=== PATIENT | female | born 1945 | race American Indian/Alaskan Native ===

== ENCOUNTER 2017-04-01 06:59 | Emergency (ER) | payer BC, MEDICARE ==
[~2017-04-01] VITALS: Ht 152.4 cm; Wt 55.3 kg
[~2017-04-01 06:59] MED LIST: FOLIC ACID1 MG PO; KEFLEX500 MG PO; LEUCOVORIN CALCI5 MG PO; MACROBID 100 M100 MG PO; METHOTREXATE2.5 MG PO; MS CONTIN15 MG PO; MULTIPLE VITAM1 EAC2 PO; NAPROXEN500 MG PO; NORCO 5-325 TA1 EACH PO; NORVASC2.5 MG PO; ORENCIA125 MG/1 M SQ; PROMETHAZINE12.5 M1 PO; PYRIDIUM200 MG PO; ULTRAM50 MG PO; VITAMIN C500 M4 PO; VITAMIN D2000 UNI1 PO; VITAMIN E200 UNI1 PO; ZOFRAN ODT4 MG PO
[2017-04-01] MEDS ORDERED: MUPIROCIN22 GM TOP (07:16)
[2017-04-01] MEDS ORDERED: AMLODIPINE BESYL5 MG PO (07:16)
[2017-04-01] MEDS ORDERED: METFORMIN HCL500 M1 PO (07:16)
[2017-04-01] MEDS ORDERED: ZITHROMAX250 MG PO (08:09)
== END 2017-04-01 08:22 | disposition home or self-care (01) ==
LOC: ED 06:59
DX: J18.9 Pneumonia, unspecified organism (principal); Z79.84 Long term (current) use of oral hypoglycemic drugs; Z79.899 Other long term (current) drug therapy
CPT/HCPCS: 71020; 99283

== ENCOUNTER 2024-10-09 11:19 | Observation (INO) | payer MEDICARE, OTHER ==
[~2024-10-09] VITALS: Ht 152.4 cm; Wt 51.7 kg
[~2024-10-09 11:19] MED LIST changes: +AMLODIPINE BESYL5 MG PO; +METFORMIN HCL500 M1 PO; +MUPIROCIN22 GM TOP; +ZITHROMAX250 MG PO
[2024-10-09 11:47] LABS: EOSINOPHILS 2.2 % (0.7-5.8); HEMATOCRIT 39.2 % (34.1-44.9); HEMOGLOBIN 13.1 g/dL (11.2-15.7); MCH 27.4 PG (25.6-32.2); MCHC 33.4 g/dL (32.2-35.5); NEUTROPHILS 60.5 % (34.0-71.1); PLATELET COUNT 253 K/uL (182-369); RBC 4.78 M/uL (3.93-5.22)
[2024-10-09 11:59] LABS: INR 0.99 (0.80-1.30); PROTIME 12.7 Sec (11.2-14.2)
[2024-10-09 12:01] LABS: PARTIAL THROMBOPLASTIN TIME 25.7 Sec (22.9-41.3)
[2024-10-09] MEDS ORDERED: GLIPIZIDE ER2.5 MG PO (12:09)
[2024-10-09 12:19] LABS: ALBUMIN 3.7 g/dL (3.4-5.0); ALBUMIN/GLOBULIN RATIO 0.9 (1.1-2.4); ANION GAP 14.5 (7-21); BILIRUBIN, TOTAL 0.4 mg/dL (0.2-1.0); BUN/CREATININE RATIO 15.23 (6.0-28.6); CALCIUM 8.9 mg/dL (8.5-10.1); CREATININE, SERUM 1.05 mg/dL (0.55-1.02); POTASSIUM 4.5 mmol/L (3.5-5.1); PROTEIN, TOTAL 7.8 g/dL (6.4-8.2)
[2024-10-09] MEDS ORDERED: ASPIRIN 325 MG TAB PO ONE (12:45)
[2024-10-09] MEDS ORDERED: CLOPIDOGREL BISULFATE 75 MG TAB PO ONE (14:00)
[2024-10-09] MEDS ORDERED: GLUCAGON,HUMAN RECOMBINANT 1 MG/ML VIAL SUB-Q PRN (15:30)
[2024-10-09] MEDS ORDERED: IBLOOD GLUCOSE TEST STRIP 1 EA TEST XX PRN (15:30)
[2024-10-09] MEDS ORDERED: LACTATED RINGER'S 1,000 ML IV SCH (15:30)
[2024-10-09] MEDS ORDERED: DEXTROSE 5% 1,000 ML IV PRN (15:30)
[2024-10-09] MEDS ORDERED: DEXTROSE 50% 50 ML SYR IV PRN ×2 (15:30)
[2024-10-09] MEDS ORDERED: ACETAMINOPHEN 325 MG TAB PO PRN (15:30)
[2024-10-09] MEDS ORDERED: ondansetron HCL 4 MG/2 ML VIAL IV PRN (15:30)
[2024-10-09 15:49] LABS: CHOLESTEROL/HDL RATIO 3.3; TSH, 3RD GENERATION 1.752 uIU/mL (0.358-3.740)
[2024-10-09 16:38] VITALS: BP 139/64
[2024-10-09] MEDS ORDERED: IBLOOD GLUCOSE TEST STRIP 1 EA TEST VI SCH (17:00)
[2024-10-09] MEDS ORDERED: INSULIN LISPRO 100 UNIT/ML ML SUB-Q SCH (17:00)
--- NOTE | 2024-10-09 17:24 | NUR ---
ADMISSION COMPLETE AT THIS TIME. PATIENT WITH TWO VISITORS IN THE ROOM THROUGHOUT PATIENT INTERACTION. FULL ASSESSMENT COMPLETE AND DOCUMENTED IN THE CHART. PATIENT IS ALERT AND ORIENTED TIMES FOUR. PATIENT IS A SBA AND VOIDED UPON ENTERING THE ROOM. PATIENT LAST BM WAS 10/09/24. IV SITE FLUSHED WITH 10 ML NORMAL SALINE. LR IS INFUSING AT 100 ML/HR. IV DRESSING IS CLEAN, DRY, AND INTACT. PATIENT IS ON ROOM AIR AND LUNG SOUNDS ARE CLEAR THROUGHOUT. CARDIAC WITH NORMAL S1 AND S2 ON AUSCULTATION. RADIAL AND PEDAL PULSES ARE STRONG BILATERALLY. NO EDEMA NOTED. SENSATION INTACT WITH NO COMPLAINTS OF NUMBNESS OR TINGLING. CAPILLARY REFILL IN THE UPPER AND LOWER EXTREMITIES IS LESS THAN 3 SECONDS. PATIENT IS ON A 60 GRAM CARB DIET. BOWEL TONES ARE ACTIVE IN ALL FOUR QUADRANTS. PATIENT IS ON TELEMETRY NUMBER 3 AND IS IN NORMAL SINUS RHYTHM. NIH WAS ONE. PATIENT WITH NO COMPLAINTS OF PAIN OR NAUSEA. PATIENT STATED NO FURTHER NEEDS AT THIS TIME. CALL LIGHT AND PERSONAL BELONGINGS ARE WITHIN REACH.
--- NOTE | 2024-10-09 18:33 | NUR ---
LEVY LANDRY IS IN THE ROOM AT THIS TIME. PATIENT STATED NO FURTHER NEEDS AT THIS TIME. CALL LIGHT AND PERSONAL BELONGINGS ARE WITHIN REACH.
[2024-10-09 18:34] VITALS: BP 136/57
--- NOTE | 2024-10-09 18:39 | NUR ---
PT RESTING IN BED. PT WAS ABLE TO WALK TO THE BATHROOM WITHOUT REPORTS OF DIZZINESS. PT ATE DINNER WELL AND HAD ICE WATER AND CRANBERRY JUICE TO DRINK. PT REPORTS NO PAIN, DIZZINESS OR TROUBLE WITH VISION. PT HAS FRESH ICE WATER AND NEEDS NOTHING ELSE AT THIS TIME.
[2024-10-09 18:43] VITALS: BP 136/57
--- NOTE | 2024-10-09 19:05 | NUR ---
REPORT RECEIVED FROM AIDEE SRINIVASAN. pt RESTING IN THE BED. BOARD UPDATED. pt DENIES ANY OTHER NEEDS AT THIS TIME. CALL LIGHT WITHIN REACH.
[2024-10-09 20:28] VITALS: BP 114/55
--- NOTE | 2024-10-09 20:29 | NUR ---
STAINED GLASS WINDOW DESIGNER OBTAINED VITALS AND I&O. PT STATES NO NEEDS AT THIS TIME. CALL LIGHT WITHIN REACH.
[2024-10-09 20:50] VITALS: BP 114/55
--- NOTE | 2024-10-09 20:50 | NUR ---
ASSESSMENT AND VITAL SIGNS DONE. pt UP TO THE BR, SBA FOR LINE AND TUBE MANAGEMENT. pt A&O X4. NO DEFICITS AT THIS TIME. IV ASSESSED, WNL. WATER REFRESHED. SNACK PROVIDED. pt DENIES ANY OTHER NEEDS AT THIS TIME. CALL LIGHT WITHIN REACH.
[2024-10-09] MEDS ORDERED: ATORVASTATIN 40 MG TAB PO SCH (21:00)
[2024-10-09] MEDS ORDERED: MELATONIN 3 MG TAB PO PRN (21:00)
--- NOTE | 2024-10-09 23:00 | NUR ---
pt RESTING IN THE BED WITH EYES CLOSED. RR EVEN AND UNLABORED. CALL LIGHT WITHIN REACH.
[2024-10-10 01:37] VITALS: BP 111/47
--- NOTE | 2024-10-10 01:38 | NUR ---
SUPERVISOR INDUSTRIAL GARMENT OBTAINED VITALS AND I&O. PT STATES NO NEEDS AT THIS TIME. CALL LIGHT WITHIN REACH.
--- NOTE | 2024-10-10 03:15 | NUR ---
pt RESTING IN THE BED WITH EYES CLOSED. RR EVEN AND UNLABORED. CALL LIGHT WITHIN REACH.
[2024-10-10 05:18] VITALS: BP 108/63
--- NOTE | 2024-10-10 05:19 | NUR ---
TOPPIECE CHOPPER OBTAINED VITALS. NO NEW I&O AT THIS TIME. PT STATES NO NEEDS AND CALL LIGHT WITHIN REACH.
[2024-10-10 05:31] LABS: BASOPHILS 1.1 % (0.1-1.2); HEMATOCRIT 35.6 % (34.1-44.9); HEMOGLOBIN 11.8 g/dL (11.2-15.7); LYMPHOCYTES 41.3 % (19.3-51.7); MCH 27.6 PG (25.6-32.2); MCHC 33.1 g/dL (32.2-35.5); MCV 83.4 fL (79.4-94.8); MONOCYTES 5.9 % (4.7-12.5); NEUTROPHILS 46.4 % (34.0-71.1); PLATELET COUNT 225 K/uL (182-369); RBC 4.27 M/uL (3.93-5.22)
[2024-10-10 05:42] LABS: ANION GAP 13.7 (7-21); BUN/CREATININE RATIO 13.79 (6.0-28.6); CALCIUM 8.3 mg/dL (8.5-10.1); CREATININE, SERUM 0.87 mg/dL (0.55-1.02); MAGNESIUM 2.1 mg/dL (1.8-2.4); POTASSIUM 4.7 mmol/L (3.5-5.1)
--- NOTE | 2024-10-10 06:10 | NUR ---
pt RESTED THROUGH OUT THE NIGHT. NO NEW DEFICITS NOTED. pt STATES THAT HAND AND TONGUE NUMBNESS HAS GONE AWAY. SBA TO BR FOR LINE AND TUBE MANAGEMENT. IVF INFUSING PER ORDER.
[2024-10-10 06:36] VITALS: BP 108/63
--- NOTE | 2024-10-10 07:01 | NUR ---
REPORT RECEIVED FROM FLEXOGRAPHIC PRESS OPERATOR RN PACHECO. PATIENT IS LYING IN BED WITH EYES OPEN AND RESPIRATIONS ARE EVEN AND UNLABORED. PATIENT IS ON THEIR PHONE. PATIENT STATED NO FURTHER NEEDS AT THIS TIME. CALL LIGHT AND PERSONAL BELONGINGS ARE WITHIN REACH.
--- NOTE | 2024-10-10 07:31 | NUR ---
PT UP TO BR INDEPENDTLY. PT VOIDS W/O DIFFICULTY. LINENS CHANGED. WARM BLANKET AND ICE WATER PROVIDED. PT UP TO CHAIR. PT DECLINES WARM WASH RAG. PT PROVIDE SUPPLIES FOR ORAL CARE. CBG COMPLETE PER EMAR. PT DENIES FURTHER NEEDS. CALL LIGHT IN REACH
[2024-10-10] MEDS ORDERED: ASPIRIN 81 MG CHEW PO SCH (08:00)
--- NOTE | 2024-10-10 08:30 | NUR ---
PATIENT IS SITTING IN THE CHAIR AND EATING BREAKFAST AT THIS TIME. 0800 AND 0900 MEDICATIONS ADMINISTERED PER THE EMAR. FRESH CUP OF COFFEE PROVIDED PER THE EMAR. PATIENT STATED NO FURTHER NEEDS AT THIS TIME. CALL LIGHT AND PERSONAL BELONGINGS ARE WITHIN REACH.
[2024-10-10] MEDS ORDERED: CLOPIDOGREL BISULFATE 75 MG TAB PO SCH (09:00)
[2024-10-10 09:18] VITALS: BP 144/56
--- NOTE | 2024-10-10 09:19 | NUR ---
PATIENT IS SITTING UPRIGHT IN THE CHAIR WITH EYES OPEN AND RESPIRATIONS ARE EVEN AND UNLABORED. PATIENT IS ON TELEMETRY NUMBER 3 AND IN NORMAL SINUS RHYTHM. PATIENT IS WORKING WITH PHYSICAL THERAPY AT THIS TIME. CALL LIGHT AND PERSONAL BELONGINGS ARE WITHIN REACH.
--- NOTE | 2024-10-10 09:19 | NUR ---
PT UP IN CHAIR. VITALS AND IS AND OS COMPLETE. PT NOW WORKING WITH P/T.
[2024-10-10 09:21] VITALS: BP 144/56
--- NOTE | 2024-10-10 10:10 | NUR ---
PATIENT IS SITTING IN THE CHAIR WITH BILATERAL LOWER EXTREMITIES ELEVATED. PATIENT WITH EYES OPEN AND RESPIRATIONS ARE EVEN AND UNLABORED. PATIENT IS ALERT AND ORIENTED TIMES FOUR. NIH STROKE SCALE IS 0. PATIENT IS A SBA. LAST BM WAS 10/09/24. IV SITE FLUSHED WITH 10 ML NORMAL SALINE. IV DRESSING IS CLEAN, DRY, AND INTACT. LR IS INFUSING AT 100 ML/HR. PATIENT IS ON ROOM AIR AND LUNG SOUNDS ARE CLEAR THROUGHOUT. PATIENT WITH NO COMPLAINTS OF PAIN OR NAUSEA. SKIN INTACT. PATIENT IS ON TELEMETRY NUMBER 3 AND IN SINUS RHYTHM. CARDIAC WITH NORMAL S1 AND S2 ON AUSCULTATION. RADIAL AND PEDAL PULSES ARE STRONG BILATERALLY. NO EDEMA NOTED. SENSATION INTACT WITH NO COMPLAINTS OF NUMBNESS OR TINGLING. CAPILLARY REFILL IN THE UPPER AND LOWER EXTREMITIES IS LESS THAN 3 SECONDS. PATIENT IS ON A 60 GRAM CARB DIET AND BOWEL TONES ARE ACTIVE IN ALL FOUR QUADRANTS. PATIENT STATED NO FURTHER NEEDS AT THIS TIME. CALL LIGHT AND PERSONAL BELONGINGS ARE WITHIN REACH.
--- NOTE | 2024-10-10 11:00 | NUR ---
pt up to shower indep. new gown and brief provided. pt back to chair. pt updated on poc. call light in reach
--- NOTE | 2024-10-10 11:05 | NUR ---
PATIENT IS SITTING UPRIGHT IN THE CHAIR AND DRYING OFF HER HAIR AFTER TAKING A SHOWER. LEVY LANZA IS IN THE ROOM AT THIS TIME. IV FLUIDS STOPPED AND THE PUMP CLEARED OF INTAKE FLUIDS. PATIENT STATED HER SISTER WILL BE PICKING HER UP. PATIENT STATED NO FURTHER NEEDS AT THIS TIME. CALL LIGHT AND PERSONAL BELONGINGS ARE WITHIN REACH.
[2024-10-10] MEDS ORDERED: CLOPIDOGREL75 MG PO (11:06)
[2024-10-10] MEDS ORDERED: LIPITOR40 MG PO (11:07)
[2024-10-10] MEDS ORDERED: ASPIRIN81 MG PO (11:08)
[2024-10-10] MEDS ORDERED: PHARMACY RENAL DOSE ADJUSTMENT 1 DOSE MISC PO SCH (12:00)
--- NOTE | 2024-10-11 12:13 | EKG ---
[facility] [address] [place], [place] [address] Signed Normal sinus rhythm Low voltage QRS Left posterior fascicular block Cannot rule out Inferior infarct , age undetermined Abnormal ECG Confirmed by Rakan Coulter DO ([id number]) on 10/11/2024 12:13:18 PM Electronically Signed By: RAKAN COULTER DO 10/11/24 1213 PATIENT NAME: GURINDER JUAREZ Electrocardiogram DATE OF : 43 PHYSICIAN: RAKAN COULTER DO REPORT #: [id number] REPORT IS CONFIDENTIAL AND NOT TO BE RELEASED WITHOUT AUTHORIZATION
== END 2024-10-10 12:30 | disposition home or self-care (01) ==
LOC: ED 11:19 → MS 11:21
PROVIDERS: Emergency Medicine; ADMIT Student in an Organized Health Care Education/Training Program; ATTEND Student in an Organized Health Care Education/Training Program
DX: I63.9 Cerebral infarction, unspecified (principal); R20.0 Anesthesia of skin; R47.81 Slurred speech; I66.02 Occlusion and stenosis of left middle cerebral artery; I66.3 Occlusion and stenosis of cerebellar arteries; D72.829 Elevated white blood cell count, unspecified; E11.9 Type 2 diabetes mellitus without complications; I10 Essential (primary) hypertension; E78.00 Pure hypercholesterolemia, unspecified; M06.9 Rheumatoid arthritis, unspecified; Z66 Do not resuscitate; Z79.631 Long term (current) use of antimetabolite agent; Z79.84 Long term (current) use of oral hypoglycemic drugs; Z79.899 Other long term (current) drug therapy
CPT/HCPCS: 36415; 70450; 70496; 70498; 70551; 71045; 80048; 80053; 80061; 83036; 83735; 84443; 84484; 85025; 85610; 85730; 93306; 97116; 97161; 99285-25; A9270; G0378; J1815; J7121; Q9967